=== PATIENT | male | born 1935 | race Caucasian/White ===

== ENCOUNTER 2023-11-30 23:57 | Emergency (ER) | payer OTHER ==
[~2023-11-30] VITALS: Ht 162.6 cm; Wt 73.5 kg
[2023-12-01 00:14] VITALS: BP_SYST 166; PULSE 68; RESP 16; TEMP 98.1; O2SAT 96
[2023-12-01] MEDS: LIDOCAINE 1% 10 MG/ML, 20 ML MDV INJ ONE (02:00)
[2023-12-01] MEDS ORDERED: LIDO700A30 TP (02:13)
[2023-12-01 02:20] VITALS: BP_SYST 166; PULSE 68; RESP 16; TEMP 98.1; O2SAT 96
== END 2023-12-01 00:21 | disposition home or self-care (01) ==
LOC: SED 23:57
DX: M62.838 Other muscle spasm (principal); I10 Essential (primary) hypertension; Z79.899 Other long term (current) drug therapy
CPT/HCPCS: 20553; 99284; J2001

== ENCOUNTER 2024-05-01 12:35 | Inpatient (IN) | payer OTHER ==
[~2024-05-01] VITALS: Ht 160 cm; Wt 72.1 kg
[~2024-05-01 12:35] MED LIST: LIDO700A30 TP
[2024-05-01 12:50] VITALS: BP_SYST 133; PULSE 85; RESP 18; TEMP 98.2; O2SAT 97
[2024-05-01 14:21] LABS: BASOPHILS % (AUTO) 0.2 % (0.0-2.0); EOSINOPHILS # (AUTO) 0.2 K/uL (0.0-0.4); EOSINOPHILS % (AUTO) 1.6 % (0.0-4.0); HEMATOCRIT 44.8 % (36-54); HEMOGLOBIN 15.2 g/dL (14.0-18.0); LYMPHOCYTES # (AUTO) 7.1 K/uL (1.0-5.5); LYMPHOCYTES % (AUTO) 48.2 % (20.5-51.5); MEAN CORPUSCULAR HEMOGLOBIN 31 pg (27-31); MEAN CORPUSCULAR HGB CONC 34 % (32-36); MEAN CORPUSCULAR VOLUME 92 fL (79.0-98.0); MONOCYTES # (AUTO) 1.6 K/uL (0.0-1.0); MONOCYTES % (AUTO) 10.6 % (1.7-9.3); NEUTROPHILS # (AUTO) 5.8 K/uL (1.8-7.7); NEUTROPHILS % (AUTO) 39.4 % (40.0-70.0); PLATELET COUNT (AUTO) 320 K/uL (130-430); RED BLOOD CELL COUNT(AUTO) 4.87 MIL/uL (4.2-6.2); RED CELL DISTRIBUTION WIDTH 13.3 % (9.0-15.0); WHITE BLOOD COUNT (AUTO) 14.8 K/uL (4.8-10.8)
[2024-05-01 14:26] LABS: PROTHROMBIN TIME 10.9 SECS (9.5-12.5)
[2024-05-01 14:39] LABS: ALANINE AMINOTRANSFERASE 23 U/L (12-78); ALBUMIN 3.5 g/dL (3.4-4.8); ANION GAP 12 (5-15); ASPARTATE AMINOTRANSFERASE 25 U/L (10-37); BILIRUBIN,DIRECT 0.2 mg/dL (0.0-0.3); CALCIUM 9.2 mg/dL (8.4-11.0); CARBON DIOXIDE 25 mmol/L (23-29); CHLORIDE 106 mmol/L (98-107); CREATINE KINASE, TOTAL 54 U/L (39-308); CREATININE 1.36 mg/dL (0.55-1.30); GLUCOSE 124 mg/dL (74-106); POTASSIUM 4.4 mmol/L (3.5-5.1); SODIUM SERUM 143 mmol/L (136-145); THYROID STIMULATING HORMONE 1.15 uIu/mL (0.34-4.82); TOTAL BILIRUBIN 0.5 mg/dL (0.0-1.0); TOTAL PROTEIN, SERUM 8.1 g/dL (6.4-8.3); UREA NITROGEN, BLOOD 26 mg/dL (8-21)
[2024-05-01 15:23] LABS: BILIRUBIN,URINE NEGATIVE (NEGATIVE); BLOOD, URINE NEGATIVE (NEGATIVE); CLARITY/URINE CLEAR (CLEAR); COLOR,URINE YELLOW (YELLOW); GLUCOSE,URINE NEGATIVE (NEGATIVE); KETONES,URINE NEGATIVE (NEGATIVE); LEUKOCYTE ESTERASE ,URINE NEGATIVE (NEGATIVE); NITRITE, URINE NEGATIVE (NEGATIVE); PH,URINE 5.5 (5.0-8.0); PROTEIN URINE 1+ (NEGATIVE); UROBILINOGEN,URINE 0.2 (0.2-1.0)
[2024-05-01 15:27] LABS: BACTERIA,URINE RARE /HPF (None Seen); MUCUS,URINE None Seen /LPF (None Seen); RBC,URINE NONE SEEN /HPF (0-3); WBC,URINE 0-3 /HPF (0-3)
[2024-05-01] MEDS: NACL 0.9% 1,000 ML IV ONE (16:06)
[2024-05-01 21:20] VITALS: BP_SYST 131; PULSE 74; RESP 18; TEMP 98.2; O2SAT 97
[2024-05-01] MEDS: D5/0.45 NS 1,000 ML IV SCH (21:34)
[2024-05-01] MEDS: INSULIN REGULAR, HUMAN 100 UNITS/ML, 3 ML VIAL (humuLIN R) SUBCUT PRN (21:37)
[2024-05-01 21:52] VITALS: BP_SYST 134; PULSE 74; RESP 18; TEMP 98.2; O2SAT 98
[2024-05-02] VITALS: BP_SYST 125; PULSE 70; RESP 18; TEMP 97.8; O2SAT 98
[2024-05-02 04:00] VITALS: PULSE 74; RESP 18; TEMP 98; O2SAT 95
[2024-05-02 06:19] LABS: BASOPHILS # (AUTO) 0.1 K/uL (0.0-0.2); BASOPHILS % (AUTO) 0.4 % (0.0-2.0); EOSINOPHILS # (AUTO) 0.2 K/uL (0.0-0.4); HEMATOCRIT 44.4 % (36-54); HEMOGLOBIN 14.8 g/dL (14.0-18.0); LYMPHOCYTES # (AUTO) 6.7 K/uL (1.0-5.5); LYMPHOCYTES % (AUTO) 42.5 % (20.5-51.5); MEAN CORPUSCULAR HEMOGLOBIN 30 pg (27-31); MEAN CORPUSCULAR HGB CONC 33 % (32-36); MEAN CORPUSCULAR VOLUME 91 fL (79.0-98.0); MONOCYTES # (AUTO) 1.7 K/uL (0.0-1.0); MONOCYTES % (AUTO) 10.6 % (1.7-9.3); NEUTROPHILS # (AUTO) 7.2 K/uL (1.8-7.7); NEUTROPHILS % (AUTO) 45.5 % (40.0-70.0); PLATELET COUNT (AUTO) 298 K/uL (130-430); RED BLOOD CELL COUNT(AUTO) 4.87 MIL/uL (4.2-6.2); RED CELL DISTRIBUTION WIDTH 12.9 % (9.0-15.0); WHITE BLOOD COUNT (AUTO) 15.9 K/uL (4.8-10.8)
[2024-05-02 06:52] LABS: ANION GAP 9 (5-15); CARBON DIOXIDE 25 mmol/L (23-29); CHLORIDE 104 mmol/L (98-107); CREATININE 1.19 mg/dL (0.55-1.30); GLUCOSE 119 mg/dL (74-106); POTASSIUM 3.9 mmol/L (3.5-5.1); SODIUM SERUM 138 mmol/L (136-145); UREA NITROGEN, BLOOD 18 mg/dL (8-21)
[2024-05-02] MEDS ORDERED: DEXTROSE 50% JECT 50 ML DISP.SYRIN IVP PRN (07:15)
[2024-05-02] MEDS ORDERED: D5W 1,000 ML IV PRN (07:15)
[2024-05-02] MEDS ORDERED: GLUCOSE (DEXTROSE) ORAL GEL -Adults PO PRN (07:15)
[2024-05-02 08:00] VITALS: BP_SYST 142; PULSE 78; RESP 17; TEMP 99; O2SAT 96
[2024-05-02] MEDS: cefTRIAXone 1 GM IVPB PREMIX 50 ML IV SCH (13:03)
[2024-05-02 14:25] VITALS: BP_SYST 122; PULSE 81; RESP 18; TEMP 99.3; O2SAT 97
[2024-05-02 17:17] VITALS: BP_SYST 133; PULSE 83; RESP 16; TEMP 99.5; O2SAT 94
[2024-05-02 20:00] VITALS: BP_SYST 136; PULSE 88; RESP 18; TEMP 98.6; O2SAT 95
[2024-05-02] MEDS: metroNIDAZOLE 500 mg/NS 100 ML IV SCH (20:48)
[2024-05-02] MEDS: HYDROcodone/ACETAMIN 5-325 MG TAB (NORCO/ VICODIN) PO PRN (22:01)
[2024-05-03] VITALS: BP_SYST 153; PULSE 94; RESP 18; TEMP 99.1; O2SAT 93
[2024-05-03 08:00] VITALS: BP_SYST 153; PULSE 85; RESP 16; TEMP 98.2; O2SAT 96
[2024-05-03 08:32] LABS: BASOPHILS % (AUTO) 0.3 % (0.0-2.0); EOSINOPHILS # (AUTO) 0.1 K/uL (0.0-0.4); EOSINOPHILS % (AUTO) 0.4 % (0.0-4.0); HEMATOCRIT 43.5 % (36-54); HEMOGLOBIN 14.6 g/dL (14.0-18.0); LYMPHOCYTES # (AUTO) 5.3 K/uL (1.0-5.5); LYMPHOCYTES % (AUTO) 36.8 % (20.5-51.5); MEAN CORPUSCULAR HEMOGLOBIN 30 pg (27-31); MEAN CORPUSCULAR HGB CONC 34 % (32-36); MEAN CORPUSCULAR VOLUME 91 fL (79.0-98.0); MONOCYTES # (AUTO) 2.2 K/uL (0.0-1.0); NEUTROPHILS # (AUTO) 6.9 K/uL (1.8-7.7); NEUTROPHILS % (AUTO) 47.5 % (40.0-70.0); PLATELET COUNT (AUTO) 285 K/uL (130-430); RED BLOOD CELL COUNT(AUTO) 4.81 MIL/uL (4.2-6.2); WHITE BLOOD COUNT (AUTO) 14.5 K/uL (4.8-10.8)
[2024-05-03 09:03] LABS: ANION GAP 12 (5-15); CALCIUM 8.8 mg/dL (8.4-11.0); CARBON DIOXIDE 22 mmol/L (23-29); CHLORIDE 102 mmol/L (98-107); CREATININE 1.28 mg/dL (0.55-1.30); GLUCOSE 159 mg/dL (74-106); POTASSIUM 3.9 mmol/L (3.5-5.1); SODIUM SERUM 136 mmol/L (136-145); UREA NITROGEN, BLOOD 13 mg/dL (8-21)
[2024-05-03 09:48] VITALS: O2SAT 96
[2024-05-03] MEDS: methylPREDNISolone 4 MG TABLET PO ONE (11:57)
[2024-05-03 12:29] VITALS: BP_SYST 147; PULSE 78; RESP 16; TEMP 99.3; O2SAT 99
[2024-05-03] MEDS: lisinopriL 5 MG TABLET PO ONE (14:01)
[2024-05-03 14:07] LABS: BASOPHILS % (AUTO) 0.4 % (0.0-2.0); EOSINOPHILS # (AUTO) 0.1 K/uL (0.0-0.4); EOSINOPHILS % (AUTO) 0.6 % (0.0-4.0); HEMATOCRIT 44.2 % (36-54); HEMOGLOBIN 15.2 g/dL (14.0-18.0); LYMPHOCYTES # (AUTO) 5.3 K/uL (1.0-5.5); LYMPHOCYTES % (AUTO) 43.5 % (20.5-51.5); MEAN CORPUSCULAR HEMOGLOBIN 31 pg (27-31); MEAN CORPUSCULAR HGB CONC 34 % (32-36); MEAN CORPUSCULAR VOLUME 91 fL (79.0-98.0); MONOCYTES # (AUTO) 1.8 K/uL (0.0-1.0); NEUTROPHILS % (AUTO) 40.5 % (40.0-70.0); RED BLOOD CELL COUNT(AUTO) 4.89 MIL/uL (4.2-6.2); RED CELL DISTRIBUTION WIDTH 12.6 % (9.0-15.0); WHITE BLOOD COUNT (AUTO) 12.2 K/uL (4.8-10.8)
[2024-05-03 14:47] LABS: PLATELET COUNT (AUTO) 102 K/uL (130-430)
[2024-05-03 15:16] VITALS: BP_SYST 144; PULSE 70; RESP 16; TEMP 101.4; O2SAT 96
[2024-05-03] MEDS: ACETAMINOPHEN 500 MG TABLET PO PRN (16:07)
[2024-05-03 20:00] VITALS: BP_SYST 129; PULSE 66; RESP 18; TEMP 98.2; O2SAT 95
[2024-05-03] MEDS: COLCHICINE 0.6 MG TABLET PO SCH (20:21)
[2024-05-03] MEDS: lisinopriL 5 MG TABLET PO SCH (20:22)
[2024-05-04 00:52] VITALS: BP_SYST 149; PULSE 64; RESP 17; TEMP 96.5; O2SAT 97
[2024-05-04 07:41] LABS: BASOPHILS % (AUTO) 0.2 % (0.0-2.0); EOSINOPHILS % (AUTO) 0.2 % (0.0-4.0); HEMATOCRIT 41.7 % (36-54); HEMOGLOBIN 13.8 g/dL (14.0-18.0); LYMPHOCYTES # (AUTO) 4.1 K/uL (1.0-5.5); LYMPHOCYTES % (AUTO) 42.6 % (20.5-51.5); MEAN CORPUSCULAR HEMOGLOBIN 31 pg (27-31); MEAN CORPUSCULAR HGB CONC 33 % (32-36); MEAN CORPUSCULAR VOLUME 92 fL (79.0-98.0); MONOCYTES # (AUTO) 1.7 K/uL (0.0-1.0); MONOCYTES % (AUTO) 18.1 % (1.7-9.3); NEUTROPHILS # (AUTO) 3.7 K/uL (1.8-7.7); NEUTROPHILS % (AUTO) 38.9 % (40.0-70.0); PLATELET COUNT (AUTO) 251 K/uL (130-430); RED BLOOD CELL COUNT(AUTO) 4.52 MIL/uL (4.2-6.2); WHITE BLOOD COUNT (AUTO) 9.6 K/uL (4.8-10.8)
[2024-05-04 07:51] LABS: ANION GAP 10 (5-15); CALCIUM 8.9 mg/dL (8.4-11.0); CARBON DIOXIDE 23 mmol/L (23-29); CHLORIDE 104 mmol/L (98-107); CREATININE 1.37 mg/dL (0.55-1.30); GLUCOSE 183 mg/dL (74-106); POTASSIUM 3.9 mmol/L (3.5-5.1); SODIUM SERUM 137 mmol/L (136-145); UREA NITROGEN, BLOOD 17 mg/dL (8-21)
[2024-05-04 08:20] VITALS: BP_SYST 143; PULSE 55; RESP 15; TEMP 98.2; O2SAT 98
[2024-05-04] MEDS: metFORMIN HCL 500 MG TABLET PO SCH (08:38)
[2024-05-04] MEDS: methylPREDNISolone 4 MG TABLET PO SCH (08:39)
[2024-05-04 08:45] VITALS: O2SAT 98
[2024-05-04 12:00] VITALS: BP_SYST 143; PULSE 64; RESP 19; TEMP 98; O2SAT 100
[2024-05-04 16:41] VITALS: BP_SYST 133; PULSE 67; RESP 18; TEMP 97.9; O2SAT 96
[2024-05-04 20:00] VITALS: BP_SYST 147; PULSE 71; RESP 18; TEMP 98.1; O2SAT 98
[2024-05-05] VITALS (7 sets, daily range): BP systolic 147–164; PULSE 69–94; RESP 14–20; TEMP 97.4–98.1; O2SAT 97–98
[2024-05-05] MEDS: LORazepam 2 MG/ML VIAL IVP ONE ×2 (00:30→03:42)
[2024-05-05] MEDS ORDERED: COLCHICINE 0.6 MG TABLET PO ONE (10:00)
[2024-05-05] MEDS: COLCHICINE 0.6 MG TABLET PO SCH (10:00)
[2024-05-06 00:47] VITALS: BP_SYST 152; PULSE 77; RESP 20; TEMP 97.9; O2SAT 98
[2024-05-06 07:53] LABS: BASOPHILS % (AUTO) 0.4 % (0.0-2.0); EOSINOPHILS # (AUTO) 0.1 K/uL (0.0-0.4); EOSINOPHILS % (AUTO) 0.9 % (0.0-4.0); HEMATOCRIT 42.6 % (36-54); HEMOGLOBIN 14.3 g/dL (14.0-18.0); LYMPHOCYTES # (AUTO) 5.4 K/uL (1.0-5.5); LYMPHOCYTES % (AUTO) 53.7 % (20.5-51.5); MEAN CORPUSCULAR HEMOGLOBIN 31 pg (27-31); MEAN CORPUSCULAR HGB CONC 34 % (32-36); MEAN CORPUSCULAR VOLUME 91 fL (79.0-98.0); MONOCYTES # (AUTO) 1.2 K/uL (0.0-1.0); MONOCYTES % (AUTO) 11.8 % (1.7-9.3); NEUTROPHILS # (AUTO) 3.3 K/uL (1.8-7.7); NEUTROPHILS % (AUTO) 33.2 % (40.0-70.0); PLATELET COUNT (AUTO) 293 K/uL (130-430); RED BLOOD CELL COUNT(AUTO) 4.68 MIL/uL (4.2-6.2)
[2024-05-06 08:00] VITALS: O2SAT 97
[2024-05-06 08:33] LABS: ANION GAP 11 (5-15); CALCIUM 8.7 mg/dL (8.4-11.0); CARBON DIOXIDE 23 mmol/L (23-29); CHLORIDE 105 mmol/L (98-107); CREATININE 1.18 mg/dL (0.55-1.30); GLUCOSE 124 mg/dL (74-106); POTASSIUM 3.6 mmol/L (3.5-5.1); SODIUM SERUM 139 mmol/L (136-145); UREA NITROGEN, BLOOD 19 mg/dL (8-21)
[2024-05-06] MEDS ORDERED: CELE100C PO (11:25)
[2024-05-06] MEDS ORDERED: PRED10TA PO (11:25)
[2024-05-06] MEDS ORDERED: DOXY100C5 PO (11:30)
[2024-05-06 12:59] VITALS: BP_SYST 138; PULSE 69; RESP 18; TEMP 97.8; O2SAT 100
[2024-05-06 16:49] VITALS: BP_SYST 158; PULSE 66; RESP 16; TEMP 97.7; O2SAT 94
[2024-05-06 17:21] VITALS: BP_SYST 146; PULSE 69; RESP 19; TEMP 98.1; O2SAT 97
== END 2024-05-06 19:20 | DRG 602 ==
LOC: SED 12:35 → SMU 17:18 → OBSVTOIN 05-04 11:00
PROVIDERS: ADMIT Specialist; ATTEND Specialist
DX: L03.116 Cellulitis of left lower limb (principal); J69.0 Pneumonitis due to inhalation of food and vomit; N39.0 Urinary tract infection, site not specified; R65.10 Systemic inflammatory response syndrome (SIRS) of non-infectious origin without acute organ dysfunction; F03.90 Unspecified dementia, unspecified severity, without behavioral disturbance, psychotic disturbance, mood disturbance, and anxiety; E78.5 Hyperlipidemia, unspecified; I10 Essential (primary) hypertension; E11.9 Type 2 diabetes mellitus without complications; Z79.899 Other long term (current) drug therapy
CPT/HCPCS: 36415; 70450-TC; 70551; 71045; 73721; 80048; 80076; 81000; 81001; 81015; 82550; 82948; 83605; 84439; 84443; 84484; 84550; 85025; 85610; 85730; 87040; 92610-GN; 93005; 97110-GO; 97110-GP; 97530-GO; 97530-GP; 97535-GO; 99285; G0378; J0696; J2060; J3490; J7030; J7509